=== PATIENT | male | born 1995 | race Caucasian/White ===

== ENCOUNTER 2021-04-24 10:17 | Emergency (ER) | payer SELFPAY ==
[~2021-04-24] VITALS: Ht 177 cm; Wt 83.0 kg
--- NOTE | 2021-04-24 11:39 | ED GU-Female ---
General Chief Complaint: - Reproductive Stated Complaint: R TESTICLE SWOLLEN,ABD PAIN Nursing Triage Note: PT REPORTS R TESTICLE PAIN SINCE 99. PT ALSO C/O LOWER ABD PAIN, REPORTS CONSTIPATION YESTERDAY. PT PREVIOUSLY DX W/ DIVERTICULITIS AND HYDROCELE. Source: patient Exam Limitations: no limitations (MARY DHALIWAL APRN) History of Present Illness Date Seen by Provider: Apr 24, 2021 Time Seen by Provider: 11:35 Initial Comments To ER with right testicle pain since 1 AM. Has a history of a right-sided hydrocele since 2015 which will swell occasionally but is usually not painful. It became painful last night he also has some right lower abdominal pain no fever no chills. He is never seen urology for this hydrocele. Timing/Duration: this morning Severity/Quality: moderate Location: RLQ Radiation: none Activities at Onset: none Prior Genitourinary Problems: none Modifying Factors: Improves With Analgesics (MARY HDALIWAL APRN) Allergies and Home Medications Allergies Coded Allergies: No Known Drug Allergies (Unverified , 04/24/21) Patient Home Medication List Home Medication List Reviewed: Yes (MARY DHALIWAL APRN) Hydrocodone/Acetaminophen (Hydrocodone-Acetamin 5-325 mg) 1 Each Tablet, 1 TAB PO Q4H PRN for PAIN-MODERATE (5-7) Prescribed by: MARY DHALIWAL on 04/24/21 1254 Sulfamethoxazole/Trimethoprim (Bactrim Ds Tablet) 1 Each Tablet, 1 EACH PO BID Prescribed by: MARY DHALIWAL on 04/24/21 1255 Last Action: New Order Review of Systems Review of Systems Constitutional: see HPI EENTM: see HPI Respiratory: no symptoms reported Cardiovascular: no symptoms reported Genitourinary: see HPI Musculoskeletal: no symptoms reported Skin: no symptoms reported Psychiatric/Neurological: No Symptoms Reported Endocrine: No Symptoms Reported (MARY DHALIWAL APRN) Past Uewecon-Wuwgmm-Qpcios Hx Patient Social History Tobacco Use?: Yes Tobacco type used: Cigarettes Smoking Status: Current Everyday Smoker Substance use?: Yes Substance type: Marijuana Alcohol Use?: No Pt feels they are or have been: No (MARY DHALIWAL APRN) Past Medical History Surgery/Hospitalization HX: HYDROCELE, DIVERTICULITIS (MARY DHALIWAL APRN) Physical Exam Vital Signs Vital Signs - First Documented 04/24/21 10:50 Temp 36.9 Pulse 85 Resp 18 B/P (MAP) 132/91 (105) Pulse Ox 98 O2 Delivery Room Air (KAILA MATOS MD) Vital Signs Capillary Refill : Less Than 3 Seconds (MARY DHALIWAL APRN) Height, Weight, BMI Height: '" Weight: lbs. oz. kg; 26.00 BMI Method: General Appearance: WD/WN, no apparent distress HEENT: PERRL/EOMI, normal ENT inspection Neck: non-tender, full range of motion Respiratory: no respiratory distress, no accessory muscle use Gastrointestinal: normal bowel sounds, soft, tenderness (Minimal right lower tenderness) Genital/Rectal: other (There is some tenderness to the right testicle, the r ight side of the scrotum is a bit swollen as well) Neurologic/Psychiatric: alert, normal mood/affect, oriented x 3 Skin: normal color, warm/dry (MARY DHALIWAL APRN) Progress/Results/Core Measures Suspected Sepsis SIRS Temperature: Pulse: 85 Respiratory Rate: 18 Blood Pressure 132 /91 Mean: 105 (MARY DHALIWAL APRN) Results/Orders Lab Results Laboratory Tests Test 04/24/21 12:31 Range/Units Urine Color YELLOW Urine Clarity CLEAR Urine pH 6.0 5-9 Urine Specific [place] >=1.030 1.016-1.022 Urine Protein NEGATIVE NEGATIVE Urine Glucose (UA) NEGATIVE NEGATIVE Urine Ketones NEGATIVE NEGATIVE Urine Nitrite NEGATIVE NEGATIVE Urine Bilirubin NEGATIVE NEGATIVE Urine Urobilinogen 0.2 < = 1.0 MG/DL Urine Leukocyte Esterase NEGATIVE NEGATIVE Urine RBC (Auto) NEGATIVE NEGATIVE Urine RBC RARE /HPF Urine WBC RARE /HPF Urine Squamous Epithelial Cells NONE /HPF Urine Renal Epithelial Cells NONE /HPF Urine Crystals NONE /LPF Urine Bacteria NEGATIVE /HPF Urine Casts NONE /LPF Urine Mucus SMALL H /LPF Urine Other FEW SPERM H /HPF Urine Culture Indicated NO (KAILA MATOS MD) Vital Signs/I&O 04/24/21 04/24/21 10:50 13:07 Temp 36.9 36.9 Pulse 85 85 Resp 18 18 B/P (MAP) 132/91 (105) 132/91 Pulse Ox 98 98 O2 Delivery Room Air Room Air (KAILA MATOS MD) Vital Signs/I&O Capillary Refill : Less Than 3 Seconds (MARY DHALIWAL APRN) Blood Pressure Mean: 105 Departure Communication (Admissions) Family Conversation NAME: [facility] REC#: [id number] PT STATUS: REG ER : 1995 PHYSICIAN: MARY DHALIWAL APRN ADMIT DATE: 04/24/21/ER Draft Date of Exam:04/24/21 CT ABD/PELVIS WO(KIDNEY STONE) PROCEDURE: CT urinary tract, rule out kidney stone. TECHNIQUE: Multiple contiguous axial images were obtained through the abdomen and pelvis without the use of intravenous contrast. Auto Exposure Controls were utilized during the CT exam to meet ALARA standards for radiation dose reduction. INDICATION: Right flank pain. COMPARISON: No priors. Noncontrasted abdominopelvic CT performed with multiplanar reconstructions. FINDINGS: The solitary right kidney is unobstructed, nonfocal, and nonacute. No radiopaque urinary tract calculi. The adrenal glands bilaterally are present and normal in appearance and normal in position. The air-containing appendix arises off the posterolateral wall of the cecum and appeared unremarkable. No features of acute appendicitis. There are some mild diverticular changes to the sigmoid colon without features of acute diverticulitis. There is abnormal thickening of the mid to distal small bowel through the level of the terminal ileum with some mild congestion and inflammation of the subtending mesentery and trace free fluid. Findings are consistent with nonspecific distal enteritis, and the pattern raises the question of Crohn's disease; correlate clinically. This could also be an infectious enteritis. No abscess, obstruction, perforation, or findings of a fistula. Stomach, duodenum, and proximal small bowel are unremarkable. The colon is nonacute. Urinary bladder is unremarkable. Liver, gallbladder, bile ducts, spleen, and pancreas are unremarkable. The aorta is nonaneurysmal. The lung bases and the bony structures are nonacute. IMPRESSION: 1. Solitary unobstructed nonacute right kidney. Normal appendix. 2. Inflammatory changes and thickening of distal small bowel through the level of the terminal ileum with perienteric edema, congestion, and trace free fluid in the pelvis. Findings are consistent with nonspecific distal enteritis, and inflammatory bowel disease such as Crohn's could not be excluded. Infectious enteritis is an additional consideration. 3. No abscess, obstruction, or perforation. Dictated on workstation # [id number] Dict: 04/24/21 1205 Trans: 04/24/21 1216 [id number] Interpreted by: ERYN GARCIA Electronically signed by: NAME: [facility] REC#: [id number] PT STATUS: REG ER : 1995 PHYSICIAN: MARY DHALIWAL APRN ADMIT DATE: 04/24/21/ER Draft Date of Exam:04/24/21 US SCROTUM (Testicle) [id number] PROCEDURE: US Scrotum. TECHNIQUE: Multiple real-time grayscale images were obtained over the scrotum in various projections bilaterally. INDICATION: Right testicle pain. FINDINGS: Right testicle measures 4.3 x 2.6 x 2.5 cm and the left testicle measures 4.2 x 2.0 x 2.2 cm. Both testes show homogeneous echotexture. No discrete testicular mass is identified. There is blood flow to both testes. Left epididymis is unremarkable. Right epididymis does show some slight enlargement and heterogeneity. No significant increased vascularity is present, however possibility of epididymitis cannot be entirely excluded. Patient does have a large right hydrocele. No left-sided hydrocele or evidence of varicocele is detected. IMPRESSION: 1. No evidence of testicular mass or vascular compromise. 2. Large right hydrocele. 3. There is some enlargement and heterogeneity to the right epididymis. Epididymitis cannot be entirely excluded. Dictated on workstation # [id number] Dict: 04/24/21 1146 Trans: 04/24/21 1156 [id number] Interpreted by: PERI HIRSCH MD Electronically signed by: (MARY DHALIWAL APRN) Impression Primary Impression: Hydrocele Additional Impression: Enteritis Disposition: 01 HOME, SELF-CARE Condition: Stable Departure-Patient Inst. Decision time for Depature: 11:37 (MARY DHALIWAL APRN) Referrals: NO,LOCAL PHYSICIAN (PCP) Primary Care Physician ARNAV CASILLAS MD Patient Instructions: Hydrocele, Hydrocele Repair Add. Discharge Instructions: 1. You can call the [facility] in [place] or Dr. Casillas here in [place] to make an appointment to be seen to discuss having this hydrocele sac removed. [facility] - [place] [address] 1. In regards to the right lower abdominal pain you have some inflamed loops of small bowel but your appendix has a normal appearance. This can be secondary to a viral or bacterial infection. Do clear liquid diet for the next 24 to 48 hours. Tylenol and ibuprofen for pain control. Follow-up with your primary care doctor next week return to ER for any high fevers, intolerable pain or other concerns. All discharge instructions reviewed with patient and/or family. Voiced understanding. Scripts Sulfamethoxazole/Trimethoprim (Bactrim Ds Tablet) 1 Each Tablet 1 EACH PO BID, #14 TAB Prov: MARY DHALIWAL OIL FIELD TESTER 04/24/21 Hydrocodone/Acetaminophen (Hydrocodone-Acetamin 5-325 mg) 1 Each Tablet 1 TAB PO Q4H PRN for PAIN-MODERATE (5-7), #10 TAB Prov: MARY DHALIWAL APRN 04/24/21 Work/School Note: Work Release Form Date Seen in the Emergency Department: Apr 24, 2021 Return to Work: Apr 26, 2021 Restrictions: No Restrictions ATTENDING PHYSICIAN NOTE: I was physically present as attending physician in the emergency department during the care of this patient, but I was not directly involved in the decision making or delivery of care for this patient. (KAILA MATOS MD) MARY DHALIWAL APRN Apr 24, 2021 11:39 KAILA MATOS MD Apr 24, 2021 19:14
--- NOTE | 2021-04-24 11:56 | Diagnostic Imaging Report ---
PROCEDURE: US Scrotum. TECHNIQUE: Multiple real-time grayscale images were obtained over the scrotum in various projections bilaterally. INDICATION: Right testicle pain. FINDINGS: Right testicle measures 4.3 x 2.6 x 2.5 cm and the left testicle measures 4.2 x 2.0 x 2.2 cm. Both testes show homogeneous echotexture. No discrete testicular mass is identified. There is blood flow to both testes. Left epididymis is unremarkable. Right epididymis does show some slight enlargement and heterogeneity. No significant increased vascularity is present, however possibility of epididymitis cannot be entirely excluded. Patient does have a large right hydrocele. No left-sided hydrocele or evidence of varicocele is detected. IMPRESSION: 1. No evidence of testicular mass or vascular compromise. 2. Large right hydrocele. 3. There is some enlargement and heterogeneity to the right epididymis. Epididymitis cannot be entirely excluded. Dictated by: Dictated on workstation # [id number]
--- NOTE | 2021-04-24 12:16 | Diagnostic Imaging Report ---
PROCEDURE: CT urinary tract, rule out kidney stone. TECHNIQUE: Multiple contiguous axial images were obtained through the abdomen and pelvis without the use of intravenous contrast. Auto Exposure Controls were utilized during the CT exam to meet ALARA standards for radiation dose reduction. INDICATION: Right flank pain. COMPARISON: No priors. Noncontrasted abdominopelvic CT performed with multiplanar reconstructions. FINDINGS: The solitary right kidney is unobstructed, nonfocal, and nonacute. No radiopaque urinary tract calculi. The adrenal glands bilaterally are present and normal in appearance and normal in position. The air-containing appendix arises off the posterolateral wall of the cecum and appeared unremarkable. No features of acute appendicitis. There are some mild diverticular changes to the sigmoid colon without features of acute diverticulitis. There is abnormal thickening of the mid to distal small bowel through the level of the terminal ileum with some mild congestion and inflammation of the subtending mesentery and trace free fluid. Findings are consistent with nonspecific distal enteritis, and the pattern raises the question of Crohn's disease; correlate clinically. This could also be an infectious enteritis. No abscess, obstruction, perforation, or findings of a fistula. Stomach, duodenum, and proximal small bowel are unremarkable. The colon is nonacute. Urinary bladder is unremarkable. Liver, gallbladder, bile ducts, spleen, and pancreas are unremarkable. The aorta is nonaneurysmal. The lung bases and the bony structures are nonacute. IMPRESSION: 1. Solitary unobstructed nonacute right kidney. Normal appendix. 2. Inflammatory changes and thickening of distal small bowel through the level of the terminal ileum with perienteric edema, congestion, and trace free fluid in the pelvis. Findings are consistent with nonspecific distal enteritis, and inflammatory bowel disease such as Crohn's could not be excluded. Infectious enteritis is an additional consideration. 3. No abscess, obstruction, or perforation. Dictated by: Dictated on workstation # [id number]
[2021-04-24 12:36] LABS: BILIRUBIN,URINE NEGATIVE (NEGATIVE); CLARITY,URINE CLEAR; COLOR,URINE YELLOW; GLUCOSE, URINE (UA) NEGATIVE (NEGATIVE); KETONES,URINE NEGATIVE (NEGATIVE); LEUKOCYTE ESTERASE ,URINE NEGATIVE (NEGATIVE); NITRITE,URINE NEGATIVE (NEGATIVE); PROTEIN,URINE NEGATIVE (NEGATIVE)
[2021-04-24 12:47] LABS: BACTERIA,URINE NEGATIVE /HPF; RBC,URINE RARE /HPF; URINE OTHER FEW SPERM /HPF; WBC,URINE RARE /HPF
[2021-04-24] MEDS ORDERED: ACHD5005 PO (12:53)
[2021-04-24] MEDS ORDERED: SULF-221 PO (12:55)
[2021-04-24 13:07] VITALS: BP 132/91
== END 2021-04-24 13:07 | disposition home or self-care (01) ==
LOC: ER 10:21
DX: N43.3 Hydrocele, unspecified (principal); K52.9 Noninfective gastroenteritis and colitis, unspecified; F17.210 Nicotine dependence, cigarettes, uncomplicated
CPT/HCPCS: 74176; 76870; 81000

== ENCOUNTER 2021-05-09 16:56 | Emergency (ER) | payer SELFPAY ==
[~2021-05-09] VITALS: Ht 177.8 cm; Wt 81.6 kg
[~2021-05-09 16:56] MED LIST: ACHD5005 PO; SULF-221 PO
[2021-05-09 17:00] VITALS: BP 163/109
[2021-05-09] MEDS ORDERED: ACHD5005 PO (17:15)
[2021-05-09] MEDS ORDERED: HYDROcodone/APAP 5 MG/325 MG (LORTAB) TAB PO ONE (17:15)
--- NOTE | 2021-05-09 17:16 | ED Lower Extremity ---
General Chief Complaint: Lower Extremity Stated Complaint: RIGHT KNEE INJURY Source: patient Exam Limitations: no limitations History of Present Illness Date Seen by Provider: May 09, 2021 Time Seen by Provider: 17:00 Initial Comments Patient is a 26-year-old male who was playing with his child on a [id number], the kids came around and hit him in the right lateral knee he states displacing his knee immediately. He had immediate pain and swelling at the medial joint line. He states he was unable to bear weight. This happened at about 315 this afternoon. Patient has taken ibuprofen prior to arrival. He states he had prior injury to that knee several years ago and was told that he had a "torn ligament". This did not require surgery. He states initially he had a little pain and numbness tingling in his foot and ankle this has resolved. No injury to the lower leg or thigh or right hip. No other complaints of illness or injury All other review of systems reviewed and negative except as stated Onset: just prior to arrival Severity: moderate Pain/Injury Location: right knee Method of Injury: direct blow Allergies and Home Medications Allergies Coded Allergies: No Known Drug Allergies (Unverified , 04/24/21) Patient Home Medication List Home Medication List Reviewed: Yes Hydrocodone/Acetaminophen (Hydrocodone-Acetamin 5-325 mg) 1 Each Tablet, 1 TAB PO Q4H PRN for PAIN-MODERATE (5-7) Prescribed by: MARY DHALIWAL on 04/24/21 1254 Sulfamethoxazole/Trimethoprim (Bactrim Ds Tablet) 1 Each Tablet, 1 EACH PO BID Prescribed by: MARY DHALIWAL on 04/24/21 1255 Review of Systems Constitutional: see HPI EENTM: no symptoms reported Respiratory: no symptoms reported Cardiovascular: no symptoms reported Gastrointestinal: no symptoms reported Genitourinary: no symptoms reported Musculoskeletal: joint pain (right knee medial) Skin: no symptoms reported All Other Systems Reviewed Negative Unless Noted: Yes Past Sgfilgu-Nwcshh-Lmoisn Hx Past Medical History Surgery/Hospitalization HX: HYDROCELE, DIVERTICULITIS Physical Exam Vital Signs Capillary Refill : Height, Weight, BMI Height: '" Weight: lbs. oz. kg; 26.00 BMI Method: General Appearance: WD/WN, no apparent distress Cardiovascular: regular rate, rhythm Respiratory: no respiratory distress, no accessory muscle use Hips: bilateral hip non-tender, bilateral hip normal inspection, bilateral hip normal range of motion Legs: bilateral leg non-tender, bilateral leg normal inspection, bilateral leg normal range of motion Knees: right knee pain (medial joint line), right knee soft tissue tenderness, right knee swelling (medial), right knee other (decreased ROM - speicially flexion; no crepitance) Ankles: bilateral ankle non-tender, bilateral ankle normal inspection, bilateral ankle normal range of motion, bilateral ankle no evidence of injury Feet: bilateral foot non-tender, bilateral foot normal inspection, bilateral foot normal range of motion Neurologic/Psychiatric: alert, normal mood/affect, oriented x 3 Skin: normal color, warm/dry Progress/Results/Core Measures Results/Orders My Orders Orders - GENNA CUADRA MD Knee, Right, 3 Views (05/09/21 17:07) Hydrocodone/Apap 5/325 Tablet (Lortab 5 (05/09/21 17:15) Departure Impression Primary Impression: Internal derangement of right knee Disposition: 01 HOME, SELF-CARE Condition: Stable Departure-Patient Inst. Decision time for Depature: 17:13 Referrals: NO,LOCAL PHYSICIAN (PCP) Primary Care Physician GUERRERO PFEIFFER MD Patient Instructions: Internal Derangement of the Knee Add. Discharge Instructions: Ice packs to the right knee off and on 20 minutes at a time for the next 24 hour s. Ibuprofen 600mg (3 tablets) every 6 hours with food for pain. Hydrocodone 5mg, every 6 hours for more severe pain. elevate to reduce swelling. Wear the knee immobilizer for comfort and crutches with toe touch weight bearing as tolerated. Follow up with Orthopedics - I have given you referral information for Dr Pfeiffer, the Ortho doc integration manager. Return to the ER for any new, emergent or concerning symptoms. Scripts Hydrocodone/Acetaminophen (Hydrocodone-Acetamin 5-325 mg) 1 Each Tablet 1 TAB PO Q6H PRN for PAIN-MODERATE (5-7), #10 TAB Prov: GENNA CUADRA MD 05/09/21 GENNA CUADRA MD May 09, 2021 17:15
--- NOTE | 2021-05-09 18:08 | Diagnostic Imaging Report ---
CLINICAL HISTORY: Right knee pain. Injury. COMPARISON: None. TECHNIQUE: 3 views of the right knee. FINDINGS: There is no acute fracture or dislocation of the right knee. Alignment is anatomic. The imaged joint spaces are preserved. No joint effusion is seen in the right knee. IMPRESSION: No acute fracture or dislocation in the right knee. No joint effusion. Dictated by: Dictated on workstation # [id number]
== END 2021-05-09 18:20 | disposition home or self-care (01) ==
LOC: EDUNIT# 16:56 → ER 16:59
DX: M23.91 Unspecified internal derangement of right knee (principal)
CPT/HCPCS: 73562

== ENCOUNTER 2021-05-19 13:46 | Emergency (ER) | payer SELFPAY ==
[~2021-05-19] VITALS: Ht 177 cm; Wt 81.6 kg
--- NOTE | 2021-05-19 14:39 | ED Lower Extremity ---
General Chief Complaint: Lower Extremity Stated Complaint: R KNEE SWELLING Nursing Triage Note: PT PRESENTS TO ED VIA POV FROM HOME WITH COMPLAINTS OF R KNEE THAT IS SWOLLEN, PAINFUL, AND NUMB. PT IS SCHEDULED TO FOLLOW UP WITH HIS DR TOMORROW AND FOR AN MRI. Source: patient Exam Limitations: no limitations History of Present Illness Date Seen by Provider: May 19, 2021 Time Seen by Provider: 14:37 Initial Comments To ER with right knee pain and swelling. He was here last week after he twisted and felt a popping sensation in the knee. The knee was feeling good until yesterday at which point he had a recurrence of progressive swelling. He arrives using crutches. He is scheduled for an MRI tomorrow. He is worried about the numbness and the swelling today. He was seen here at the time of injury and had a negative x-ray. Onset: just prior to arrival Severity: moderate Pain/Injury Location: right knee Method of Injury: twisted Modifying Factors: Worse With Movement Allergies and Home Medications Allergies Coded Allergies: No Known Drug Allergies (Unverified , 04/24/21) Patient Home Medication List Home Medication List Reviewed: Yes Hydrocodone/Acetaminophen (Hydrocodone-Acetamin 5-325 mg) 1 Each Tablet, 1 TAB PO Q4H PRN for PAIN-MODERATE (5-7) Prescribed by: MARY DHALIWAL on 04/24/21 1254 Hydrocodone/Acetaminophen (Hydrocodone-Acetamin 5-325 mg) 1 Each Tablet, 1 TAB PO Q6H PRN for PAIN-MODERATE (5-7) Prescribed by: GENNA CUADRA on 05/09/21 1716 Sulfamethoxazole/Trimethoprim (Bactrim Ds Tablet) 1 Each Tablet, 1 EACH PO BID Prescribed by: MARY DHALIWAL on 04/24/21 1255 Review of Systems Constitutional: see HPI; No chills EENTM: see HPI Respiratory: no symptoms reported Cardiovascular: no symptoms reported Genitourinary: no symptoms reported Musculoskeletal: see HPI Skin: no symptoms reported Psychiatric/Neurological: No Symptoms Reported Past Zvassew-Vgkrfj-Fsqjgl Hx Patient Social History Tobacco Use?: Yes Tobacco type used: Cigarettes Smoking Status: Current Everyday Smoker Substance use?: Yes Substance type: Marijuana Alcohol Use?: Yes Alcohol Frequency: Rarely Pt feels they are or have been: No Past Medical History Surgery/Hospitalization HX: HYDROCELE, DIVERTICULITIS, TORN LIGAMENT IN R KNEE Physical Exam Vital Signs Vital Signs - First Documented 05/19/21 14:08 Temp 37.0 Pulse 102 Resp 16 B/P (MAP) 126/83 (97) Pulse Ox 6 Capillary Refill : Less Than 3 Seconds Height, Weight, BMI Height: '" Weight: lbs. oz. kg; 26.00 BMI Method: General Appearance: WD/WN, no apparent distress HEENT: PERRL/EOMI, normal ENT inspection Neck: non-tender, full range of motion Respiratory: no respiratory distress, no accessory muscle use Hips: bilateral hip non-tender, bilateral hip normal inspection, bilateral hip normal range of motion Legs: bilateral leg non-tender, bilateral leg normal inspection, bilateral leg normal range of motion Knees: right knee pain, right knee soft tissue tenderness, right knee swelling, right knee other (Palpable effusion without erythema. Minor ecchymosis in the popliteal fossa. Strong dorsalis pedis pulse.) Ankles: bilateral ankle non-tender, bilateral ankle normal inspection, b ilateral ankle normal range of motion Feet: bilateral foot non-tender, bilateral foot normal inspection, bilateral foot normal range of motion Neurologic/Psychiatric: alert, normal mood/affect, oriented x 3 Skin: normal color, warm/dry Procedures/Interventions Additional Procedures: Arthrocentesis Aspirating Progress An area that was 1 cm superior and lateral to the superior and lateral border of the patella was identified and marked with a skin pen, this was then swabbed with 3 Betadine swabs which were allowed to dry. 2 mL of lidocaine was used to anesthetize the tract using a 25-gauge needle down into the joint space. A larger 18-gauge needle was inserted and 24 mL of serosanguineous material was aspirated. He had resultant significant improvement in his discomfort. I then instilled 4 mL of 1% lidocaine without epinephrine +40 mg (1 mL) of triamcinolone. Tolerated the procedure well. Band-Aid was placed over the puncture site. He reported immediate improvement in pain. He has follow-up with primary care tomorrow to discuss MRI. Progress/Results/Core Measures Results/Orders My Orders Orders - MARY DHALIWAL APRN Body Fluid Cell Count (05/19/21 14:34) Body Fluid Culture (05/19/21 14:34) Crystals,Body Fluid (05/19/21 14:34) Lidocaine 2% Injection 20 Ml (Xylocaine (05/19/21 14:45) Triamcinolone Acetonide Im (Kenalog-40) (05/19/21 14:45) Lidocaine 1% Inj 20 Ml (Xylocaine 1% Inj (05/19/21 14:41) Medications Given in ED Current Medications Medications Dose Ordered Sig/Latasha Route Start Time Stop Time Status Last Admin Dose Admin Lidocaine HCl 20 ml ONCE ONCE INJ 05/19/21 14:45 05/19/21 14:46 DC 05/19/21 14:44 20 ML Triamcinolone Acetonide 40 mg ONCE ONCE IA 05/19/21 14:45 05/19/21 14:46 DC 05/19/21 14:44 40 MG Vital Signs/I&O 05/19/21 14:08 Temp 37.0 Pulse 102 Resp 16 B/P (MAP) 126/83 (97) Pulse Ox 6 Blood Pressure Mean: 97 Departure Impression Primary Impression: Traumatic effusion of knee joint Disposition: HOME, SELF-CARE Condition: Stable Departure-Patient Inst. Decision time for Depature: 14:59 Referrals: NO,LOCAL PHYSICIAN (PCP) Primary Care Physician Patient Instructions: Swollen Joints Add. Discharge Instructions: Anti-inflammatories like ibuprofen or naproxen in addition to the prescribed pain medication. Use an ice pack to the knee for 30 minutes every couple of hours. Continue to use the crutches. When you are pain-free then you can stop using the crutches. Keep your appointment with primary care tomorrow. Return to ER for any concerns All discharge instructions reviewed with patient and/or family. Voiced understanding. Scripts Hydrocodone/Acetaminophen (Hydrocodone-Acetamin 5-325 mg) 1 Each Tablet 1 TAB PO Q4H PRN for PAIN-MODERATE (5-7), #10 TAB Prov: MARY DHALIWAL APRN 05/19/21 Work/School Note: Work Release Form Date Seen in the Emergency Department: May 19, 2021 Return to Work: May 21, 2021 MARY DHALIWAL APRN May 19, 2021 14:39
[2021-05-19] MEDS ORDERED: LIDOCAINE 1% INJ 20 ML VIAL ONE (14:41)
[2021-05-19] MEDS ORDERED: TRIAMCINOLONE ACET (KENALOG-40) 40 MG/ML 1 ML VIAL IA ONE (14:45)
[2021-05-19] MEDS ORDERED: LIDOCAINE 2% 20 ML (XYLOCAINE) VIAL INJ ONE (14:45)
[2021-05-19] MEDS ORDERED: ACHD5005 PO (15:02)
[2021-05-19 15:14] VITALS: BP 126/83
[2021-05-19 15:56] LABS: BODY FLUID COLOR RED; BODY FLUID SOURCE SYNOVIAL
[2021-05-19 15:57] LABS: BODY FLUID APPEARENCE MKD BLDY; BODY FLUID WBC TOTAL COUNT 875 /uL
[2021-05-19 15:59] LABS: BODY FLUID RBC COUNT 190000 /uL
[2021-05-19 16:21] LABS: BF OTHER CELLS 10 %; LYMPHOCYTES,BODY FLUID 86 %
== END 2021-05-19 15:14 | disposition home or self-care (01) ==
LOC: EDUNIT# 13:46 → ER 13:47
DX: M25.461 Effusion, right knee (principal); F17.210 Nicotine dependence, cigarettes, uncomplicated
CPT/HCPCS: 20610; 87070; 87205; 89051; 89060

== ENCOUNTER 2021-06-24 22:05 | Emergency (ER) | payer MEDICAID ==
[~2021-06-24] VITALS: Ht 177.8 cm; Wt 54.4 kg
[2021-06-24 22:15] VITALS: BP 132/92
--- NOTE | 2021-06-24 22:38 | ED Lower Extremity ---
General Chief Complaint: Lower Extremity Stated Complaint: R KNEE PAIN Nursing Triage Note: Pt arrives via POV from home for c/o right knee pain/swelling; onset two months ago. Pt reports needing knee drained one month ago during ED visit. Pt reports going to [facility] for MRI, but states his insurance would not approve MRI without physical therapy prior. Source: patient Exam Limitations: no limitations (KRUNAL TOTH MED STUDENT) History of Present Illness Date Seen by Provider: Jun 24, 2021 Time Seen by Provider: 22:25 Initial Comments Patient is a 26 year old male who presents to the ED with complaints of right knee "gushy-ness" and increased swelling. Reports that 6 weeks ago he injured the right knee when he was playing at a park with a kid who was on the [employer]ESS[employer] round and was hit from on the lateral aspect of the right knee by the child as they spun on the [employer] round. States that the pain is worsening and is a 7/10 currently, worsens with walking and improves with rest. Has been wearing a knee brace daily. Had been seen here in the ED a few weeks ago and had some fluid aspirated from the right knee joint. States the swelling is worsening and feels like it may need to be drained again. States he's been given a script for lortab which he last used about 10 days ago for pain. Has not been taking other pain meds for the pain. States he's been trying to get prior auth through his insurance for an MRI and is going to get an MRI in about a week. Onset: other (6 weeks ago) Pain/Injury Location: right knee Method of Injury: direct blow Modifying Factors: Improves With Jarring, Improves With Movement (KRUNAL TOTH MED STUDENT) Initial Comments 26-year-old male presents to the emergency room with right knee pain with swelling. Injury back in April. Has been following with [facility] but noted increasing/worsening symptoms this evening. Took Tylenol couple of times today and alternated some heat and ice. Was concerned about the amount of swelling and risk of infection. Had arthrocentesis of the right knee about 2 or 3 weeks ago with some improvement of his symptoms. Thought that maybe he might need that again today. No complaints of numbness weakness or tingling. No hip or foot pain. (GENNA CUADRA MD) Allergies and Home Medications Allergies Coded Allergies: No Known Drug Allergies (Unverified , 04/24/21) Patient Home Medication List Home Medication List Reviewed: Yes (GENNA CUADRA MD) Hydrocodone/Acetaminophen (Hydrocodone-Acetamin 5-325 mg) 1 Each Tablet, 1 TAB PO Q4H PRN for PAIN-MODERATE (5-7) Prescribed by: MARY DHALIWAL on 04/24/21 1254 Hydrocodone/Acetaminophen (Hydrocodone-Acetamin 5-325 mg) 1 Each Tablet, 1 TAB PO Q6H PRN for PAIN-MODERATE (5-7) Prescribed by: GENNA CUADRA on 05/09/21 1716 Hydrocodone/Acetaminophen (Hydrocodone-Acetamin 5-325 mg) 1 Each Tablet, 1 TAB PO Q4H PRN for PAIN-MODERATE (5-7) Prescribed by: MARY DHALIWAL on 05/19/21 1502 Sulfamethoxazole/Trimethoprim (Bactrim Ds Tablet) 1 Each Tablet, 1 EACH PO BID Prescribed by: MARY DHALIWAL on 04/24/21 1255 Tramadol HCl (Tramadol HCl) 50 Mg Tablet, 50 MG PO Q6H PRN for PAIN Prescribed by: GENNA CUADRA on 06/24/21 2257 Review of Systems Constitutional: no symptoms reported; No chills, No diaphoresis EENTM: see HPI; No blurred vision, No double vision Respiratory: no symptoms reported; No cough, No short of breath Cardiovascular: no symptoms reported; No chest pain, No edema, No palpitations Gastrointestinal: No abdominal pain, No diarrhea, No nausea, No vomiting Genitourinary: no symptoms reported; No discharge, No dysuria Musculoskeletal: no symptoms reported; No back pain; joint pain (right knee), joint swelling (right knee) Skin: no symptoms reported; No change in color, No change in hair/nails Psychiatric/Neurological: No Symptoms Reported; Denies Anxiety, Denies Depressed (KRUNAL TOTH MED STUDENT) All Other Systems Reviewed Negative Unless Noted: Yes (KRUNAL TOTH STUDENT) Past Txvpqyi-Ebhqkw-Ohgwuv Hx Patient Social History Tobacco Use?: Yes Tobacco type used: Cigarettes Smoking Status: Current Everyday Smoker (1/2 PPD) Smokeless Tobacco Frequency: Never a User Use of E-Cig and/or Vaping dev: No Use of E-Cig and/or Vaping Everardo: Never a User Substance use?: Yes Substance type: Marijuana (Daily use) Alcohol Use?: Yes Alcohol Frequency: Rarely Pt feels they are or have been: No (KRUNAL TOTH Acquia STUDENT) Immunizations Up To Date Tetanus Booster (TDap): Unknown Influenza Vaccine Up-to-Date: No; Not Current First/Initial COVID19 Vaccinat: N/A, Refusal (KRUNAL TOTH Acquia EDWIN) Seasonal Allergies Seasonal Allergies: No (KRUNAL TOTH Acquia EDWIN) Past Medical History Surgery/Hospitalization HX: HYDROCELE, DIVERTICULITIS, TORN LIGAMENT IN R KNEE Respiratory: Yes Asthma Cardiac: No Neurological: No Genitourinary: No Gastrointestinal: Yes Diverticulosis (Diverticulitis) Musculoskeletal: No Endocrine: No HEENT: No Loss of Vision: Denies Hearing Impairment: Denies Cancer: No Psychosocial: No Integumentary: No Blood Disorders: No (KRUNAL TOTH Acquia EDWIN) Physical Exam Vital Signs Vital Signs - First Documented 06/24/21 22:15 Temp 36.9 Pulse 120 Resp 18 B/P (MAP) 132/92 (105) Pulse Ox 98 O2 Delivery Room Air (GENNA CUADRA MD) Vital Signs Capillary Refill : Less Than 3 Seconds (KRUNAL TOTH STUDENT) Height, Weight, BMI Height: '" Weight: lbs. oz. kg; 17.00 BMI Method: General Appearance: WD/WN, no apparent distress HEENT: PERRL/EOMI, normal ENT inspection Neck: non-tender, full range of motion Cardiovascular: normal peripheral pulses, regular rate, rhythm, no edema Respiratory: chest non-tender, lungs clear, normal breath sounds Gastrointestinal: normal bowel sounds, non tender, soft Back: normal inspection, no CVA tenderness Knees: right knee bone tenderness, right knee deformity, right knee joint eff usion, right knee pain Neurologic/Tendon: normal sensation, normal motor functions Neurologic/Psychiatric: desktop manager II-XII nml as tested, no motor/sensory deficits, alert, oriented x 3 Skin: normal color, warm/dry Lymphatic: no adenopathy (Head and Neck) (KRUNAL TOTH Acquia STUDENT) General Appearance: WD/WN, no apparent distress Respiratory: no respiratory distress, no accessory muscle use Hips: bilateral hip normal range of motion Legs: bilateral leg non-tender, bilateral leg normal inspection, bilateral leg normal range of motion, bilateral leg no evidence of injury Knees: right knee joint effusion, right knee pain, right knee soft tissue tenderness, right knee other (Patient with medial and lateral joint line tenderness. Limited range of motion secondary to discomfort. Palpable effusion. Tenderness on anterior drawer with no significant laxity, also quite sensitive to medial stress.) Feet: bilateral foot non-tender, bilateral foot normal inspection, bilateral foot normal range of motion, bilateral foot no evidence of injury Neurologic/Tendon: normal sensation, normal motor functions Neurologic/Psychiatric: alert, normal mood/affect, oriented x 3 Skin: normal color, warm/dry, other (Slight increased warmth over the right knee) (GENNA CUADRA MD) Progress/Results/Core Measures Results/Orders My Orders Orders - GENNA CUADRA MD Naproxen Tablet (Naprosyn Tablet) (06/24/21 23:00) (GENNA CUADRA MD) Vital Signs/I&O 06/24/21 22:15 Temp 36.9 Pulse 120 Resp 18 B/P (MAP) 132/92 (105) Pulse Ox 98 O2 Delivery Room Air (GENNA CUADRA MD) Blood Pressure Mean: 105 Progress Progress Note : Time: 22:55 Progress Note Recommend ybpf-vla-zmzqlvd cooling gel packs, ibuprofen or naproxen instead of Tylenol. Elevation. Limited range of motion. Follow-up with [facility]. Patient is comfortable with this plan of care. (GENNA CUADRA MD) Departure Impression Primary Impression: Internal derangement of right knee Disposition: 01 HOME, SELF-CARE Condition: Stable Departure-Patient Inst. Decision time for Depature: 22:55 (GENNA CUADRA MD) Referrals: [facility] [place] JASEN,LOCAL PHYSICIAN (PCP) Primary Care Physician Patient Instructions: Internal Derangement of the Knee Add. Discharge Instructions: Stay off the right knee as much as possible. You can try ehlo-eif-utxoihg cooling gel packs for swelling. Ibuprofen 800 mg which is 4 tablets every 8 hours with food as needed for pain or you can take Aleve, 2 tablets in the morning and 2 at night with food for pain. Do not take both of these medications. Return to the emergency department for any increased redness over the knee with increasing swelling, fever or other emergent concerns. Keep your follow-up appointments with [facility] to schedule an MRI of the knee. Tramadol 1 tablet every 6-8 hours as needed for more severe pain. This medication may make you sleepy, do not drive and take this medication. It can also cause constipation. You should take stool softeners if you are needing to take the tramadol. Scripts Tramadol HCl (Tramadol HCl) 50 Mg Tablet 50 MG PO Q6H PRN for PAIN, #10 TAB 0 Refills Prov: GENNA CUADRA MD 06/24/21 KRUNAL TOTH MED STUDENT Jun 24, 2021 22:38 GENNA CUADRA MD Jun 24, 2021 22:57
[2021-06-24] MEDS ORDERED: TRM50T PO (22:57)
[2021-06-24] MEDS ORDERED: NAPROXEN 250 MG (NAPROSYN) TABLET PO ONE (23:00)
== END 2021-06-24 23:23 | disposition home or self-care (01) ==
LOC: EDUNIT# 22:05 → ER 22:07
DX: M23.91 Unspecified internal derangement of right knee (principal); F17.210 Nicotine dependence, cigarettes, uncomplicated
CPT/HCPCS: 99283

== ENCOUNTER 2021-07-07 13:26 | Outpatient (RCR) | payer MEDICAID ==
[~2021-07-07 13:26] MED LIST changes: +TRM50T PO
== END 2021-07-09 | disposition home or self-care (01) ==
PROVIDERS: ATTEND Pediatrics
DX: M25.561 Pain in right knee (principal)

== ENCOUNTER 2021-08-05 14:13 | Outpatient (RCR) | payer MEDICAID | END 2021-08-05 14:15 | disposition home or self-care (01) | PROVIDERS: ATTEND Pediatrics | DX: M25.561 Pain in right knee (principal) ==

== ENCOUNTER → 2021-10-09 | Outpatient (CLI) | payer MEDICAID ==
--- NOTE | 2021-10-13 09:09 | Diagnostic Imaging Report ---
MRI RT LOWER EXT JOINT W/O TECHNIQUE: Multiplanar, multisequence MR imaging of the right knee was performed without contrast. COMPARISON: None available. INDICATION: Knee pain FINDINGS: Due to technologist oversight, no coronal imaging was performed. Below assessment is based on axial and sagittal imaging. MENISCI Medial meniscus: Intact. Lateral meniscus: Intact. LIGAMENTS ACL: Complete tear of the ACL in its mid substance. PCL: Intact. MCL: Poorly evaluated without coronal imaging, but no gross tear. LCL: Poorly evaluated without coronal imaging, but no gross tear. EXTENSOR MECHANISM The extensor mechanism is intact. CARTILAGE Medial compartment: Medial compartment articular cartilage is well preserved without focal high-grade chondromalacia. Lateral compartment: The lateral compartment articular cartilage is preserved without high-grade chondromalacia. Patellofemoral compartment: The patellofemoral articular cartilage is well preserved without high-grade chondromalacia. BONE No fracture, stress fracture or osteonecrosis. SOFT TISSUE No knee effusion or Manuel's cyst. IMPRESSION: 1. Please note that due to error during image acquisition, coronal imaging was not obtained. Patient has been recalled to complete imaging at no additional cost. However, patient has not been able to make it to any of the reschedule appointments. If the additional coronal imaging will alter patient management, then patient can return for the 2 coronal series at no additional cost, and an addendum will be made to this exam. 2. Complete tear of the ACL. 3. No meniscal tear. 4. No acute articular cartilage injury. Dictated by: Dictated on workstation # [id number]
== END ==
LOC: RAD 08:00
PROVIDERS: ATTEND Nurse Practitioner Family
DX: S83.511A Sprain of anterior cruciate ligament of right knee, initial encounter (principal); X58.XXXA Exposure to other specified factors, initial encounter
CPT/HCPCS: 73721

== ENCOUNTER 2021-11-29 17:57 | Emergency (ER) | payer MEDICAID | END 2021-11-29 19:02 | disposition left against medical advice (07) | LOC: EDUNIT# 17:57 → ER 17:59 | DX: R51.9 Headache, unspecified (principal) ==

== ENCOUNTER 2021-12-04 09:01 | Outpatient (RCR) | payer MEDICAID | END 2021-12-09 | disposition home or self-care (01) | PROVIDERS: ATTEND Orthopaedic Surgery | DX: M23.611 Other spontaneous disruption of anterior cruciate ligament of right knee (principal); J45.909 Unspecified asthma, uncomplicated ==

== ENCOUNTER 2022-01-07 13:00 | Outpatient (RCR) | payer MEDICAID | END 2022-01-08 | disposition home or self-care (01) | PROVIDERS: ATTEND Orthopaedic Surgery | DX: M23.611 Other spontaneous disruption of anterior cruciate ligament of right knee (principal); J45.909 Unspecified asthma, uncomplicated ==

== ENCOUNTER 2022-02-05 08:05 | Outpatient (RCR) | payer MEDICAID | END 2022-02-08 | disposition home or self-care (01) | PROVIDERS: ATTEND Orthopaedic Surgery | DX: M23.611 Other spontaneous disruption of anterior cruciate ligament of right knee (principal); J45.909 Unspecified asthma, uncomplicated ==

== ENCOUNTER 2022-02-19 08:00 | Outpatient (RCR) | payer MEDICAID | END 2022-02-19 12:50 | disposition home or self-care (01) | PROVIDERS: ATTEND Orthopaedic Surgery | DX: M23.611 Other spontaneous disruption of anterior cruciate ligament of right knee (principal); J45.909 Unspecified asthma, uncomplicated ==

== ENCOUNTER 2022-12-25 16:58 | Emergency (ER) | payer MEDICAID ==
[~2022-12-25] VITALS: Ht 175 cm; Wt 90.7 kg
[2022-12-25] MEDS ORDERED: fentaNYL INJECTION 100 MCG/2 ML VIAL IVP STA (17:08)
--- NOTE | 2022-12-25 17:11 | ED Abdominal Pain ---
General Chief Complaint: Abdominal/GI Problems Stated Complaint: AB PAIN Source of Information: Patient Exam Limitations: No Limitations History of Present Illness Date Seen by Provider: Dec 25, 2022 Time Seen by Provider: 17:10 Initial Comments Patient is a 27-year-old male with a history of diverticulitis who presents ED with left lower quadrant abdominal pain. Abdominal pain started yesterday. Described as sharp and constant. Pain does not radiate. Denies any nausea, vomiting. Reports chronic diarrhea at least 2-3 episodes daily without any blood or mucus. Denies history of previous abdominal surgery. Denies of any urinary symptoms, frequent urination, hematuria, fever, chills, chest pain, shortness of breath. Denies taking anything for pain. Reports decreased appetite. States this feels like his diverticulitis Allergies and Home Medications Allergies Coded Allergies: No Known Drug Allergies (Unverified , 04/24/21) Patient Home Medication List Home Medication List Reviewed: Yes Ciprofloxacin HCl (Ciprofloxacin HCl) 500 Mg Tablet, 500 MG PO BID Prescribed by: LAURENCE DELANEY on 12/25/22 1843 Hydrocodone/Acetaminophen (Hydrocodone-Acetamin 5-325 mg) 1 Each Tablet, 1 TAB PO Q4H PRN for PAIN-MODERATE (5-7) Prescribed by: MARY DHALIWAL on 04/24/21 1254 Hydrocodone/Acetaminophen (Hydrocodone-Acetamin 5-325 mg) 1 Each Tablet, 1 TAB PO Q6H PRN for PAIN-MODERATE (5-7) Prescribed by: GENNA CUADRA on 05/09/21 1716 Hydrocodone/Acetaminophen (Hydrocodone-Acetamin 5-325 mg) 1 Each Tablet, 1 TAB PO Q4H PRN for PAIN-MODERATE (5-7) Prescribed by: MARY DHALIWAL on 05/19/21 1502 Metronidazole (Metronidazole) 500 Mg Tablet, 500 MG PO TID Prescribed by: LAURENCE DELANEY on 12/25/22 1843 Sulfamethoxazole/Trimethoprim (Bactrim Ds Tablet) 1 Each Tablet, 1 EACH PO BID Prescribed by: MARY DHALIWAL on 04/24/21 1255 Tramadol HCl (Tramadol HCl) 50 Mg Tablet, 50 MG PO Q6H PRN for PAIN Prescribed by: GENNA CUADRA on 06/24/21 8669 Review of Systems Review of Systems Constitutional: No chills, No diaphoresis EENTM: No Eye Pain Respiratory: Denies Cough, Denies Orthopnea Cardiovascular: Denies Chest Pain Gastrointestinal: Abdominal Pain, Diarrhea; Denies Nausea, Denies Vomiting Genitourinary: Denies Burning, Denies Discharge, Denies Drainage Musculoskeletal: No back pain, No joint pain Skin: No change in color All Other Systems Reviewed Negative Unless Noted: Yes Past Olbbpci-Vpjnsv-Wpxisw Hx Immunizations Up To Date Tetanus Booster (TDap): Unknown First/Initial COVID19 Vaccinat: N/A, Refusal Seasonal Allergies Seasonal Allergies: No Past Medical History Surgery/Hospitalization HX: HYDROCELE, DIVERTICULITIS, TORN LIGAMENT IN R KNEE Respiratory: Yes Asthma Cardiac: No Neurological: No Genitourinary: No Gastrointestinal: Yes Diverticulosis Musculoskeletal: No Endocrine: No HEENT: No Loss of Vision: Denies Hearing Impairment: Denies Cancer: No Psychosocial: No Integumentary: No Blood Disorders: No Physical Exam Vital Signs Vital Signs - First Documented 12/25/22 17:05 Temp 37.3 Pulse 83 Resp 17 B/P (MAP) 119/79 (92) Pulse Ox 99 O2 Delivery Room Air Capillary Refill : Height/Weight/BMI Height: '" Weight: lbs. oz. kg; 17.00 BMI Method: General Appearance: WD/WN, no apparent distress HEENT: PERRL/EOMI, normal ENT inspection, TMs normal, pharynx normal Neck: non-tender, full range of motion, supple Respiratory: chest non-tender, lungs clear, normal breath sounds, no respiratory distress, no accessory muscle use Cardiovascular: regular rate, rhythm, no edema, no gallop, no JVD Gastrointestinal: normal bowel sounds, soft, no organomegaly, tenderness (Left lower quadrant tenderness. Normal bowel sounds throughout. No rebound or guarding) Extremities: normal range of motion, non-tender, normal inspection, no pedal edema Back: normal inspection, no CVA tenderness Neurologic/Psychiatric: record keeper II-XII nml as tested, no motor/sensory deficits, alert, normal mood/affect, oriented x 3 Skin: normal color, warm/dry Progress/Results/Core Measures Results/Orders Lab Results Laboratory Tests Test 12/25/22 17:11 12/25/22 18:24 Range/Units White Blood Count 6.7 4.3-11.0 10^3/uL Red Blood Count 5.02 4.30-5.52 10^6/uL Hemoglobin 14.8 13.3-17.7 g/dL Hematocrit 44 40-54 % Mean Corpuscular Volume 88 80-99 fL Mean Corpuscular Hemoglobin 30 25-34 pg Mean Corpuscular Hemoglobin Concent 34 32-36 g/dL Red Cell Distribution Width 11.9 10.0-14.5 % Platelet Count 228 130-400 10^3/uL Mean Platelet Volume 9.3 9.0-12.2 fL Immature Granulocyte % (Auto) 0 % Neutrophils (%) (Auto) 68 42-75 % Lymphocytes (%) (Auto) 17 12-44 % Monocytes (%) (Auto) 9 0-12 % Eosinophils (%) (Auto) 5 0-10 % Basophils (%) (Auto) 0 0-10 % Neutrophils # (Auto) 4.6 1.8-7.8 10^3/uL Lymphocytes # (Auto) 1.1 1.0-4.0 10^3/uL Monocytes # (Auto) 0.6 0.0-1.0 10^3/uL Eosinophils # (Auto) 0.4 H 0.0-0.3 10^3/uL Basophils # (Auto) 0.0 0.0-0.1 10^3/uL Immature Granulocyte # (Auto) 0.0 0.0-0.1 10^3/uL Sodium Level 139 135-145 MMOL/L Potassium Level 4.0 3.6-5.0 MMOL/L Chloride Level 107 98-107 MMOL/L Carbon Dioxide Level 22 21-32 MMOL/L Anion Gap 10 5-14 MMOL/L Blood Urea Nitrogen 12 7-18 MG/DL Creatinine 1.09 0.60-1.30 MG/DL Estimat Glomerular Filtration Rate 95 BUN/Creatinine Ratio 11 Glucose Level 102 70-105 MG/DL Calcium Level 9.4 8.5-10.1 MG/DL Corrected Calcium 9.2 8.5-10.1 MG/DL Total Bilirubin 0.4 0.1-1.0 MG/DL Aspartate Amino Transf (AST/SGOT) 22 5-34 U/L Alanine Aminotransferase (ALT/SGPT) 21 0-55 U/L Alkaline Phosphatase 84 40-136 U/L Total Protein 7.3 6.4-8.2 GM/DL Albumin 4.3 3.2-4.5 GM/DL Lipase 106 H 8-78 U/L Urine Color YELLOW Urine Clarity CLEAR Urine pH 6.0 5-9 Urine Specific [place] 1.020 1.016-1.022 Urine Protein NEGATIVE NEGATIVE Urine Glucose (UA) NEGATIVE NEGATIVE Urine Ketones NEGATIVE NEGATIVE Urine Nitrite NEGATIVE NEGATIVE Urine Bilirubin NEGATIVE NEGATIVE Urine Urobilinogen 1.0 < = 1.0 MG/DL Urine Leukocyte Esterase NEGATIVE NEGATIVE Urine RBC (Auto) NEGATIVE NEGATIVE Urine RBC NONE /HPF Urine WBC NONE /HPF Urine Squamous Epithelial Cells NONE /HPF Urine Crystals NONE /LPF Urine Bacteria NEGATIVE /HPF Urine Casts NONE /LPF Urine Mucus NEGATIVE /LPF Urine Culture Indicated NO My Orders Orders - JOSE GILLESPIE Cbc With Automated Diff (12/25/22 17:08) Comprehensive Metabolic Panel (12/25/22 17:08) Lipase (12/25/22 17:08) Ua Culture If Indicated (12/25/22 17:08) Ct Abdomen/Pelvis W (12/25/22 17:08) Fentanyl Injection (Fentanyl Injection (12/25/22 17:08) Iohexol Injection (Omnipaque 350 Mg/Ml 1 (12/25/22 17:30) Received Contrast (Hold Metformin- Contr (12/25/22 17:30) Ns (Ivpb) 100 Ml (Sodium Chloride 0.9% 1 (12/25/22 17:30) Medications Given in ED Current Medications Medications Dose Ordered Sig/Latasha Route Start Time Stop Time Status Last Admin Dose Admin Iohexol 100 ml ONCE ONCE IV 12/25/22 17:30 12/25/22 18:56 DC 12/25/22 17:52 80 ML Sodium Chloride 100 ml ONCE ONCE IV 12/25/22 17:30 12/25/22 18:56 DC 12/25/22 17:52 100 ML Vital Signs/I&O 12/25/22 12/25/22 17:05 18:54 Temp 37.3 36.1 Pulse 83 73 Resp 17 18 B/P (MAP) 119/79 (92) 105/65 Pulse Ox 99 98 O2 Delivery Room Air Room Air Departure Communication (PCP) Reviewed previous ER visits, H&P, lab test. History of diverticulitis. Left lower quad abdominal pain for the past 2 days. Chronic diarrhea 2-3 episodes daily with no acute changes over the past two days. Denies of any vomiting fever chills body aches. Patient with left lower quadrant tenderness. No urinary symptoms. Differential diagnosis colitis, diverticulitis, urinary tract infection, nephrolithiasis, urolithiasis. CBC, CMP, lipase was ordered. CBC, CMP grossly unremarkable. Lipase slightly elevated at 106. Urinalysis without evidence of infection or hematuria. Due to history of diverticulitis CT abdomen pelvis was ordered which shows concern for colitis. Patient did receive a dose of pain medication with improvement of pain. Patient With his history of divert iculitis. I will discharge Cipro and Flagyl for 5 days. Denies eating anything different at home. No recent travels. No bloody mucousy stools. Due to his history of diverticulitis I would recommend following up outpatient with general surgery for further evaluation. patient may require colonoscopy. Denies family history of inflammatory bowel disease. Discussed clear liquid diet for the next 2 or 3 days. If any worsening pain, fever to return back to ED Impression Primary Impression: Colitis Disposition: 01 HOME, SELF-CARE Condition: Stable Departure-Patient Inst. Decision time for Depature: 18:40 Referrals: NO,LOCAL PHYSICIAN (PCP) Primary Care Physician DESIRE LOZANO DO Patient Instructions: Colitis Add. Discharge Instructions: Clear liquid diet for the next 2 to 3 days. Take antibiotics as prescribed. If any worsening symptoms return back to ED. Follow-up with PCP in 2 to 3 days for reevaluation. All discharge instructions reviewed with patient and/or family. Voiced understanding. Scripts Metronidazole (Metronidazole) 500 Mg Tablet 500 MG PO TID for 5 Days, #15 TAB Prov: JOSE GILLESPIE 12/25/22 Ciprofloxacin HCl (Ciprofloxacin HCl) 500 Mg Tablet 500 MG PO BID for 5 Days, #10 TAB Prov: JOSE GILLESPIE 12/25/22 JOSE GILLESPIE Dec 25, 2022 17:11
[2022-12-25 17:20] LABS: BASOPHILS % (AUTO) 0 % (0-10); EOSINOPHILS # (AUTO) 0.4 10^3/uL (0.0-0.3); EOSINOPHILS % (AUTO) 5 % (0-10); HEMATOCRIT 44 % (40-54); HEMOGLOBIN 14.8 g/dL (13.3-17.7); LYMPHOCYTES # (AUTO) 1.1 10^3/uL (1.0-4.0); LYMPHOCYTES % (AUTO) 17 % (12-44); MEAN CORPUSCULAR HEMOGLOBIN 30 pg (25-34); MEAN CORPUSCULAR HGB CONC 34 g/dL (32-36); MEAN CORPUSCULAR VOLUME 88 fL (80-99); MEAN PLATELET VOLUME 9.3 fL (9.0-12.2); MONOCYTES # (AUTO) 0.6 10^3/uL (0.0-1.0); MONOCYTES % (AUTO) 9 % (0-12); NEUTROPHILS # (AUTO) 4.6 10^3/uL (1.8-7.8); NEUTROPHILS % (AUTO) 68 % (42-75); PLATELET COUNT 228 10^3/uL (130-400); WHITE BLOOD COUNT 6.7 10^3/uL (4.3-11.0)
[2022-12-25 17:27] LABS: ALBUMIN 4.3 GM/DL (3.2-4.5)
[2022-12-25 17:29] LABS: CALCIUM 9.4 MG/DL (8.5-10.1)
[2022-12-25 17:30] LABS: TOTAL PROTEIN 7.3 GM/DL (6.4-8.2)
[2022-12-25] MEDS ORDERED: IOHEXOL 350 MG/ML 100 ML (OMNIPAQUE 350) VIAL IV ONE (17:30)
[2022-12-25] MEDS ORDERED: NS 100 ML (IVPB) BAG IV ONE (17:30)
[2022-12-25] MEDS ORDERED: HOLD METFORMIN - RECEIVED CONTRAST 20 ML VIAL IV SCH (17:30)
[2022-12-25 17:32] LABS: BILIRUBIN,TOTAL 0.4 MG/DL (0.1-1.0)
[2022-12-25 17:34] LABS: CREATININE SERUM 1.09 MG/DL (0.60-1.30)
--- NOTE | 2022-12-25 18:26 | Diagnostic Imaging Report ---
EXAMINATION: CT abdomen and pelvis with intravenous contrast. TECHNIQUE: Multiple contiguous axial images were obtained through the abdomen and pelvis after the uneventful administration of intravenous contrast. All CT scans use one or more of the following dose optimizing techniques: automated exposure control, MA and/or KvP adjustment based on patient size and exam type or iterative reconstruction. HISTORY: Left lower quadrant abdominal pain. COMPARISON: 04/24/2021. FINDINGS: The heart is unremarkable. The included lung bases are clear. 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 The right kidney is normal. The urinary bladder is nondistended. The liver, spleen, pancreas, and adrenal glands have a normal appearance. The gallbladder is nondistended. There is no pathologically enlarged mesenteric or retroperitoneal adenopathy. The bowel loops are nondilated. The appendix is visualized in the right lower quadrant and has a normal appearance. There is mild pericolonic inflammatory changes and bowel wall thickening in the distal descending colon. There is no free fluid or free air. No acute osseous abnormality. There is no free air, loculated collection or adenopathy in the pelvis. IMPRESSION: Mild nonspecific colitis involving the distal descending colon. No free fluid or free air. No bowel obstruction. Dictated by: Dictated on workstation # [id number]
[2022-12-25 18:42] LABS: CLARITY,URINE CLEAR; COLOR,URINE YELLOW
[2022-12-25 18:43] LABS: BACTERIA,URINE NEGATIVE /HPF; BILIRUBIN,URINE NEGATIVE (NEGATIVE); GLUCOSE, URINE (UA) NEGATIVE (NEGATIVE); KETONES,URINE NEGATIVE (NEGATIVE); LEUKOCYTE ESTERASE ,URINE NEGATIVE (NEGATIVE); NITRITE,URINE NEGATIVE (NEGATIVE); PROTEIN,URINE NEGATIVE (NEGATIVE)
[2022-12-25] MEDS ORDERED: METR-145 PO (18:43)
[2022-12-25] MEDS ORDERED: CIPR500T5 PO (18:43)
[2022-12-25 18:54] VITALS: BP 105/65
== END 2022-12-25 18:54 | disposition home or self-care (01) ==
LOC: EDUNIT# 16:58 → ER 17:00
DX: K52.9 Noninfective gastroenteritis and colitis, unspecified (principal); Z28.310 Unvaccinated for COVID-19
CPT/HCPCS: 36415; 74177; 80053; 81000; 83690; 85025